=== PATIENT | female | born 1960 | race African-American/Black ===

== ENCOUNTER → 2022-10-25 13:15 | Outpatient (CLI) | payer OTHER, SELFPAY ==
[2022-10-25 14:54] LABS: Add Manual Diff / Slide Review NO; Basophils Absolute Auto 0 /uL (0-100); Basophils Percent Auto 0.4 % (0-2); Eosinophils Absolute Auto 100 /uL (0-450); Eosinophils Percent Auto 0.7 % (2-4); Hematocrit 37.1 % (36-46); Hemoglobin 12.2 g/dL (12.0-16.0); Lymphocytes Absolute Auto 2100 /uL (1100-4500); Lymphocytes Percent Auto 26.3 % (25-40); Mean Corpuscular Hemoglobin 26.5 PG (26-34); Mean Corpuscular Volume 80.3 fL (80-100); Monocytes Absolute Auto 600 /uL (0-900); Monocytes Percent Auto 7.5 % (3-14); Neutrophils Absolute Auto 5300 /uL (1500-7000); Neutrophils Percent Auto 65.1 % (50-75); Platelet Count 377 X10^3/uL (150-400); Red Blood Cell Count 4.62 X10^6/uL (4.0-5.2); White Blood Cell Count 8.1 X10^3/uL (4.5-11.0)
[2022-10-25 15:07] LABS: Alanine Aminotransferase 52 IU/L (<35); Albumin 4.8 g/dL (3.5-5.0); Albumin Globulin Ratio 1.4 (1.0-2.8); Alkaline Phosphatase 82 U/L (38-126); Aspartate Aminotransferase 44 IU/L (14-36); BUN Creatinine Ratio 15.2 (6-22); Bilirubin Total 0.4 mg/dL (0.2-1.3); Blood Urea Nitrogen 12 mg/dL (7-17); C-Reactive Protein Quant 0.5 mg/dL (<1.0); Carbon Dioxide 26 mmol/L (22-32); Chloride 103 mmol/L (98-107); Cholesterol 211 mg/dL (140-199); Estimated Glomerular Filt Rate > 60 mL/min (>60); Globulin 3.4 g/dL (1.7-4.1); Glucose 83 mg/dL (80-110); HDL Cholesterol 48 mg/dL (40-60); HEMOLYSIS < 15 (0-50); LDL Cholesterol Calculated 130 mg/dL (<100); Potassium 4.1 mmol/L (3.4-5.1); Sodium 142 mmol/L (137-145); Total Protein 8.2 g/dL (6.3-8.2); Triglycerides 165 mg/dL (35-150)
== END ==
PROVIDERS: PCP Family Medicine; Referring Provider Family Medicine; Visit Provider Family Medicine
DX: E78.5 Hyperlipidemia, unspecified (principal); M79.7 Fibromyalgia
CPT/HCPCS: 36415; 80053; 80061; 85025; 86140

== ENCOUNTER → 2022-11-21 10:47 | Outpatient (CLI) | payer OTHER, SELFPAY ==
--- NOTE | 2022-11-21 10:48 | DI.RAD.S_ITS ---
PROCEDURE: XR WRIST RT MIN 3V INDICATIONS: pain TECHNIQUE: 4 views of the wrist were acquired. COMPARISON: None. FINDINGS: Bones: No fractures or dislocations. No suspicious bony lesions. Scaphoid view: Scaphoid intact Soft tissues: No suspicious soft tissue calcifications. IMPRESSION: No evidence acute bony abnormality of the right wrist. If clinical suspicion and/or symptoms persist, further assessment with repeat plain films, or advanced imaging (e.g., CT, MRI, or bone scan) may be helpful for further assessment. Dictated by: Félix Palomo M.D. on 11/21/2022 at 12:29 Approved by: Félix Palomo M.D. on 11/21/2022 at 12:31
== END ==
PROVIDERS: PCP Family Medicine; Referring Provider Family Medicine; Visit Provider Family Medicine
DX: M25.531 Pain in right wrist (principal); G89.29 Other chronic pain
CPT/HCPCS: 73110

== ENCOUNTER 2022-11-30 09:25 | Emergency (ER) | payer OTHER, SELFPAY ==
[2022-11-30 09:42] VITALS: PULSE 93
[2022-11-30 09:44] VITALS: BP 151/96; PULSE 96; RESP 20; O2SAT 100
--- NOTE | 2022-11-30 09:48 | ED_ITS ---
HPI - General Adult General Chief complaint: Arrhythmia/Palpitations Stated complaint: Palpitations Time Seen by Provider: 11/30/22 09:38 Source: patient Mode of arrival: Ambulatory Limitations: no limitations History of Present Illness HPI narrative: 62-year-old female who is here for evaluation of palpitations. She states that for the past couple nights when she is lying in bed she feels like her heart is racing and skipping beats. It does last several minutes and then resolves. Does not get lightheaded nor short of breath with the symptoms. Has not noticed the symptoms as much during the day. She is never had these evaluated. She did start to who [id number] cholesterol medication a couple days ago which she has subsequently stopped. Related Data Home Medications Medication Instructions Recorded Confirmed calcium carbonate 500 mg-vitamin 1 tab PO DAILY 10/16/22 11/21/22 D3 10 mcg (400 unit) tablet cyclobenzaprine 10 mg tablet 10 mg PO BEDTIME 10/16/22 11/21/22 hydrocodone 5 mg-acetaminophen 325 1 tab PO Q6H PRN 10/16/22 11/21/22 mg tablet omeprazole 20 mg capsule,delayed 20 mg PO DAILY 10/16/22 11/21/22 release potassium chloride 10 mEq 10 meq PO DAILY 10/16/22 11/21/22 tablet,extended release Allergies Allergy/AdvReac Type Severity Reaction Status Date / Time sulfamethoxazole Allergy Severe Difficulty Verified 11/21/22 10:35 [From Bactrim] Breathing trimethoprim [From Bactrim] Allergy Severe Difficulty Verified 11/21/22 10:35 Breathing imitrex Allergy Intermediate Difficulty Uncoded 11/21/22 10:35 Swallowing Review of Systems Constitutional Constitutional: Reports system reviewed and no additional complaints, except as documented Cardiovascular Cardiovascular: Reports system reviewed and no additional complaints, except as documented Respiratory Respiratory: Reports system reviewed and no additional complaints, except as documented Gastrointestinal Gastrointestinal: Reports system reviewed and no additional complaints, except as documented Genitourinary Genitourinary: Reports system reviewed and no additional complaints, except as documented Integumentary/Breasts Skin/Breast: Reports system reviewed and no additional complaints, except as documented Neurologic Neurologic: Reports system reviewed and no additional complaints, except as do cumented Hematologic/Lymphatic Hematologic/Lymphatic: Reports system reviewed and no additional complaints, except as documented Patient History Medical History Arthritis Chronic pain of right wrist De Quervain's tenosynovitis, right Fibromyalgia (~2017) Finger stiffness GERD (gastroesophageal reflux disease) Hyperlipidemia Irritable bowel syndrome Tendinitis Transaminitis Upper extremity somatic dysfunction Family History Father Cancer Sister Breast cancer Social History Smoking Status: Former smoker Smoking Status: Unknown if ever smoked Exam Initial Vital Signs Initial Vital Signs: Vital Signs Pulse Rate 93 H 11/30/22 09:42 Const General: cooperative, comfortable and No ill appearing HENMT Head: normal to inspection and normocephalic Resp Effort & Inspection: normal respiratory effort Auscultation: clear to auscultation bilaterally Cardio Rate: regular rate Rhythm: regular rhythm GI Palpation: soft and No tender Skin General: no rashes or lesions noted Neuro General: patient alert, patient awake and moves all extremities Extrem General: normal to inspection and capillary refill normal Course Orders Ordered: ED Orders 11/30/22 09:38 EKG-12 Lead Stat 11/30/22 10:00 Basic Metabolic Panel Stat Complete Blood Count AUTO DIFF Stat MG [Magnesium] Stat Vital Signs Vital signs: Vital Signs - 8 hr 11/30/22 10:00 11/30/22 09:42 11/30/22 09:44 Temperature 97.5 F L Pulse Rate 82 93 H Respiratory Rate 18 Blood Pressure 130/80 151/96 H Pulse Oximetry 99 Oxygen Delivery Method Room Air 11/30/22 09:44 11/30/22 10:00 11/30/22 10:00 Temperature Pulse Rate 96 H 85 Respiratory Rate 20 18 Blood Pressure 130/80 Pulse Oximetry 100 99 Oxygen Delivery Method Medical Decision Making Lab Data Lab results reviewed: Yes I reviewed the patient's lab results. 11/30/22 10:00 11/30/22 10:00 Labs: Lab Results 11/30/22 11/30/22 11/30/22 Range/Units 10:00 10:00 10:00 WBC 8.9 (4.5-11.0) X10^3/uL RBC 4.63 (4.0-5.2) X10^6/uL Hgb 12.1 (12.0-16.0) g/dL Hct 37.2 (36-46) % MCV 80.3 (80-100) fL MCH 26.2 (26-34) PG MCHC 32.7 (30-36) % RDW 13.7 (11.6-14.8) % Plt Count 375 (150-400) X10^3/uL Neut % (Auto) 71.7 (50-75) % Lymph % (Auto) 20.6 L (25-40) % [place] % (Auto) 6.8 (3-14) % Eos % (Auto) 0.4 L (2-4) % Baso % (Auto) 0.5 (0-2) % Neut # (Auto) 6400 (0187-1513) /uL Lymph # (Auto) 1800 (6612-8179) /uL [place] # (Auto) 600 (0-900) /uL Eos # (Auto) 0 (0-450) /uL Baso # (Auto) 0 (0-100) /uL Sodium 141 (137-145) mmol/L Potassium 4.1 (3.4-5.1) mmol/L Chloride 105 (98-107) mmol/L Carbon Dioxide 26 (22-32) mmol/L BUN 10 (7-17) mg/dL Creatinine 0.75 (0.52-1.04) mg/dL Estimated GFR > 60 (>60) mL/min BUN/Creatinine Ratio 13.3 (6-22) Glucose 99 (80-110) mg/dL Calcium 9.9 (8.4-10.2) mg/dL Magnesium 1.8 (1.6-2.3) mg/dL ECG Data Attestation: I personally reviewed and interpreted this ECG as follows: Interpretation: Sinus rhythm Ventricular rate 81 Normal axis Normal QRS Normal QTC No ST T wave changes MDM Narrative Medical decision making narrative: Patient has had no symptoms since arrival here in the emergency department. Her EKG is unremarkable. Has had no ectopy on her monitoring. Her electrolytes are unremarkable. Will discharge patient home without further workup here in the ER. We did discuss strict return precautions. We discussed how she should contact her primary doctor about a follow-up and to discuss the indications for Holter monitor. She expressed understanding and agreement. Discharge Plan Departure Patient Disposition: Home Clinical Impression: Palpitations Instructions: Arrhythmias Activity Restrictions/Additional Instructions: Recommend that you continue to take all of your medications as directed. Contact your primary doctor for follow-up to discuss the indications for a Holter monitor. Return to the emergency department for any new symptoms. Prescriptions: No Action hydrocodone-acetaminophen 5-325 mg tablet 1 tab PO Q6H PRN omeprazole 20 mg capsule,delayed release(DR/EC) 20 mg PO DAILY potassium chloride 10 mEq tablet extended release 10 meq PO DAILY calcium carbonate-vitamin D3 500 mg-10 mcg (400 unit) tablet 1 tab PO DAILY cyclobenzaprine 10 mg tablet 10 mg PO BEDTIME Referrals: Fadi López DO [Primary Care Provider] - Stand Alone Forms: Patient Portal/API
[2022-11-30 10:00] VITALS: BP 130/80; PULSE 82; PULSE 85; RESP 18; TEMP 36.4; O2SAT 99
[2022-11-30 10:07] LABS: Add Manual Diff / Slide Review NO; Basophils Absolute Auto 0 /uL (0-100); Basophils Percent Auto 0.5 % (0-2); Eosinophils Absolute Auto 0 /uL (0-450); Eosinophils Percent Auto 0.4 % (2-4); Hematocrit 37.2 % (36-46); Hemoglobin 12.1 g/dL (12.0-16.0); Lymphocytes Absolute Auto 1800 /uL (1100-4500); Lymphocytes Percent Auto 20.6 % (25-40); Mean Corpuscular HGB Conc 32.7 % (30-36); Mean Corpuscular Hemoglobin 26.2 PG (26-34); Mean Corpuscular Volume 80.3 fL (80-100); Monocytes Absolute Auto 600 /uL (0-900); Monocytes Percent Auto 6.8 % (3-14); Neutrophils Absolute Auto 6400 /uL (1500-7000); Neutrophils Percent Auto 71.7 % (50-75); Platelet Count 375 X10^3/uL (150-400); Red Blood Cell Count 4.63 X10^6/uL (4.0-5.2); Red Cell Distribution Width 13.7 % (11.6-14.8); White Blood Cell Count 8.9 X10^3/uL (4.5-11.0)
[2022-11-30 10:30] VITALS: BP 139/73; PULSE 79; RESP 15; O2SAT 99
[2022-11-30 11:00] VITALS: BP 138/74; PULSE 74; RESP 16; O2SAT 100
[2022-11-30 11:16] LABS: BUN Creatinine Ratio 13.3 (6-22); Blood Urea Nitrogen 10 mg/dL (7-17); Calcium 9.9 mg/dL (8.4-10.2); Carbon Dioxide 26 mmol/L (22-32); Chloride 105 mmol/L (98-107); Estimated Glomerular Filt Rate > 60 mL/min (>60); Glucose 99 mg/dL (80-110); HEMOLYSIS < 15 (0-50); Magnesium 1.8 mg/dL (1.6-2.3); Potassium 4.1 mmol/L (3.4-5.1); Sodium 141 mmol/L (137-145)
[2022-11-30 11:30] VITALS: BP 137/77; PULSE 77; RESP 19; O2SAT 100
== END 2022-11-30 11:42 | disposition home or self-care (01) ==
PROVIDERS: Emergency Provider Emergency Medicine; PCP Family Medicine
DX: R00.2 Palpitations (principal)
CPT/HCPCS: 80048; 83735; 85025; 93005; 93010; 99281; 99284

== ENCOUNTER → 2022-12-06 08:09 | Outpatient (CLI) | payer OTHER, SELFPAY ==
--- NOTE | 2022-12-06 08:11 | DI.MG.S_ITS ---
BILATERAL DIGITAL SCREENING MAMMOGRAM 3D/2D WITH CAD: 12/06/2022 CLINICAL: Routine screening. Comparison is made to exams dated: 08/31/2021 mammogram, 09/11/2020 mammogram, and 08/09/2019 mammogram - Outside facility. Both breasts are heterogeneously dense, which may obscure small masses (category c / 51-75% glandular tissue). Current study was also evaluated with a Computer Aided Detection (CAD) system. No significant masses, calcifications, or other findings are seen in either breast. There has been no significant interval change. IMPRESSION: NEGATIVE There is no mammographic evidence of malignancy. A 1 year screening mammogram is recommended. Based on the Tyrer Cuzick model (a risk assessment model) the patient's lifetime risk is 7.1% and her 10 year risk is 3.0%. According to the ACR, ACS, and NCCN guidelines, an annual breast MRI exam along with mammogram is recommended if the patient's lifetime risk is 20% or greater. This exam was interpreted at Station ID: [id number]. NOTE: For mammograms, a report in lay terms will be sent to the patient. Approximately 15% of breast malignancies will not be visualized mammographically. In the management of a palpable breast mass, a negative mammogram must not discourage biopsy of a clinically suspicious lesion. Electronically Signed By: Debbi bran/josé manuel:12/06/2022 17:17:19 letter sent: Normal Exam ACR BI-RADS Category 1: Negative 3341F
== END ==
PROVIDERS: PCP Family Medicine; Referring Provider Family Medicine; Visit Provider Family Medicine
DX: Z12.31 Encounter for screening mammogram for malignant neoplasm of breast (principal)
CPT/HCPCS: 77063; 77067

== ENCOUNTER → 2022-12-18 09:28 | Outpatient (CLI) | payer OTHER, SELFPAY | PROVIDERS: PCP Family Medicine; Referring Provider Family Medicine; Visit Provider Family Medicine | DX: R00.2 Palpitations (principal) | CPT/HCPCS: 93242 ==

== ENCOUNTER → 2023-04-01 11:55 | Outpatient (CLI) | payer OTHER, SELFPAY ==
[2023-04-01 13:23] LABS: Cholesterol 226 mg/dL (140-199); HDL Cholesterol 48 mg/dL (40-60); LDL Cholesterol Calculated 158 mg/dL (<100); Triglycerides 100 mg/dL (35-150)
== END ==
PROVIDERS: PCP Family Medicine; Referring Provider Family Medicine; Visit Provider Family Medicine
DX: E78.5 Hyperlipidemia, unspecified (principal)
CPT/HCPCS: 36415; 80061

== ENCOUNTER → 2023-06-16 09:19 | Outpatient (CLI) | payer OTHER, SELFPAY ==
[2023-06-16 10:41] LABS: Cholesterol 186 mg/dL (140-199); HDL Cholesterol 44 mg/dL (40-60); LDL Cholesterol Calculated 125 mg/dL (<100); Triglycerides 85 mg/dL (35-150)
== END ==
PROVIDERS: PCP Family Medicine; Referring Provider Family Medicine; Visit Provider Family Medicine
DX: E78.5 Hyperlipidemia, unspecified (principal)
CPT/HCPCS: 36415; 80061

== ENCOUNTER → 2023-06-17 15:05 | Outpatient (CLI) | payer OTHER, SELFPAY ==
--- NOTE | 2023-06-17 15:06 | DI.RAD.S_ITS ---
PROCEDURE: XR THORACIC SPINE 2V INDICATIONS: upper back pain, C3-7 fusion TECHNIQUE: 3 views of the thoracic spine were acquired. COMPARISON: [facility], CR, XR CERVICAL SPINE 4V OR 5V, 06/17/2023, 15:10. FINDINGS: Bones: No fractures or dislocations. No suspicious bony lesions. 12 pairs of ribs are noted, and appear intact where visualized. Very minimal S-shaped thoracolumbar scoliotic curvature. Soft tissues: No paravertebral stripe thickening. IMPRESSION: No acute bony abnormality. Very minimal S shaped thoracolumbar scoliotic curvature. Dictated by: Félix Palomo M.D. on 06/17/2023 at 17:04 Approved by: Félix Palomo M.D. on 06/17/2023 at 17:05
--- NOTE | 2023-06-17 15:06 | DI.RAD.S_ITS ---
PROCEDURE: XR CERVICAL SPINE 4V OR 5V INDICATIONS: neck pain, h/o fusion, flex/ext TECHNIQUE: 5 views of the cervical spine were acquired. COMPARISON: None. FINDINGS: Bones: Remote ACDF at C3 through C7 with anterior plate and screw fixation and mature interbody bone graft material. No evidence of hardware failure or loosening. No fractures or dislocations to the T1 level. No suspicious bony lesions. There is diminished range of motion between flexion and extension, with preserved normal bony alignment. Soft tissues: Prevertebral soft tissues are normal in thickness. IMPRESSION: Expected appearance of orthopedic surgical hardware. Expected diminished range of motion. No abnormal motion. Dictated by: Félix Palomo M.D. on 06/17/2023 at 17:03 Approved by: Félix Palomo M.D. on 06/17/2023 at 17:04
== END ==
PROVIDERS: PCP Family Medicine; Referring Provider Family Medicine; Visit Provider Family Medicine
DX: M54.2 Cervicalgia (principal); Z98.1 Arthrodesis status
CPT/HCPCS: 72050; 72070

== ENCOUNTER → 2023-12-09 08:22 | Outpatient (CLI) | payer OTHER, SELFPAY ==
--- NOTE | 2023-12-09 | DI.MG.S_ITS ---
BILATERAL DIGITAL SCREENING MAMMOGRAM 3D/2D WITH CAD: 12/09/2023 CLINICAL: Routine screening. Family history of breast cancer. Comparison is made to exams dated: 12/06/2022 mammogram - [facility], 08/31/2021 mammogram, and 09/11/2020 mammogram - Outside facility. Both breasts are heterogeneously dense, which may obscure small masses (category c / 51-75% glandular tissue). Current study was also evaluated with a Computer Aided Detection (CAD) system. No significant masses, calcifications, or other findings are seen in either breast. There has been no significant interval change. IMPRESSION: NEGATIVE There is no mammographic evidence of malignancy. A 1 year screening mammogram is recommended. Based on the Tyrer Cuzick model (a risk assessment model) the patient's lifetime risk is 6.9% and her 10 year risk is 3.0%. According to the ACR, ACS, and NCCN guidelines, an annual breast MRI exam along with mammogram is recommended if the patient's lifetime risk is 20% or greater. This exam was interpreted at Station ID: [id number]. NOTE: For mammograms, a report in lay terms will be sent to the patient. Approximately 15% of breast malignancies will not be visualized mammographically. In the management of a palpable breast mass, a negative mammogram must not discourage biopsy of a clinically suspicious lesion. Electronically Signed By: Remy mcgee/josé manuel:12/09/2023 13:49:15 letter sent: Normal Exam ACR BI-RADS Category 1: Negative 3341F
== END ==
PROVIDERS: PCP Family Medicine; Referring Provider Family Medicine; Visit Provider Family Medicine
DX: Z12.31 Encounter for screening mammogram for malignant neoplasm of breast (principal); Z80.3 Family history of malignant neoplasm of breast; R92.333 Mammographic heterogeneous density, bilateral breasts
CPT/HCPCS: 77063; 77067

== ENCOUNTER → 2024-01-22 09:36 | Outpatient (CLI) | payer OTHER, SELFPAY ==
[2024-01-22 12:32] LABS: Cholesterol 160 mg/dL (140-199); HDL Cholesterol 49 mg/dL (40-60); LDL Cholesterol Calculated 85 mg/dL (<100); Triglycerides 132 mg/dL (35-150)
== END ==
PROVIDERS: PCP Family Medicine; Referring Provider Family Medicine; Visit Provider Family Medicine
DX: E78.5 Hyperlipidemia, unspecified (principal)
CPT/HCPCS: 36415; 80061

== ENCOUNTER → 2024-04-16 07:38 | Outpatient (CLI) | payer OTHER, SELFPAY ==
[2024-04-16 07:52] LABS: Add Manual Diff / Slide Review NO; Basophils Absolute Auto 0 /uL (0-100); Basophils Percent Auto 0.4 % (0-2); Eosinophils Absolute Auto 100 /uL (0-450); Eosinophils Percent Auto 1.4 % (2-4); Hematocrit 36.7 % (36-46); Lymphocytes Absolute Auto 2200 /uL (1100-4500); Lymphocytes Percent Auto 34.7 % (25-40); Mean Corpuscular HGB Conc 32.7 % (30-36); Mean Corpuscular Hemoglobin 26.5 PG (26-34); Monocytes Absolute Auto 400 /uL (0-900); Monocytes Percent Auto 7.1 % (3-14); Neutrophils Absolute Auto 3500 /uL (1500-7000); Neutrophils Percent Auto 56.4 % (50-75); Platelet Count 365 X10^3/uL (150-400); Red Blood Cell Count 4.54 X10^6/uL (4.0-5.2); Red Cell Distribution Width 13.8 % (11.6-14.8); White Blood Cell Count 6.2 X10^3/uL (4.5-11.0)
[2024-04-16 08:04] LABS: Alanine Aminotransferase 20 IU/L (<35); Albumin 4.5 g/dL (3.5-5.0); Albumin Globulin Ratio 1.6 (1.0-2.8); Alkaline Phosphatase 61 U/L (38-126); Aspartate Aminotransferase 25 IU/L (14-36); BUN Creatinine Ratio 18.2 (6-22); Bilirubin Total 0.5 mg/dL (0.2-1.3); Blood Urea Nitrogen 14 mg/dL (7-17); Calcium 9.5 mg/dL (8.4-10.2); Carbon Dioxide 26 mmol/L (22-32); Chloride 110 mmol/L (98-107); Cholesterol 175 mg/dL (140-199); Estimated Glomerular Filt Rate > 60 mL/min (>60); Globulin 2.8 g/dL (1.7-4.1); Glucose 102 mg/dL (80-110); HDL Cholesterol 45 mg/dL (40-60); HEMOLYSIS < 15 (0-50); LDL Cholesterol Calculated 113 mg/dL (<100); Potassium 4.4 mmol/L (3.4-5.1); Sodium 142 mmol/L (137-145); Total Protein 7.3 g/dL (6.3-8.2); Triglycerides 84 mg/dL (35-150)
== END ==
PROVIDERS: PCP Family Medicine; Referring Provider Family Medicine; Visit Provider Family Medicine
DX: R12 Heartburn (principal); R49.0 Dysphonia; M79.7 Fibromyalgia; E78.5 Hyperlipidemia, unspecified
CPT/HCPCS: 36415; 80053; 80061; 85025

== ENCOUNTER → 2024-10-18 08:39 | Outpatient (CLI) | payer BC, SELFPAY ==
[2024-10-18 10:12] LABS: Cholesterol 232 mg/dL (140-199); HDL Cholesterol 55 mg/dL (40-60); LDL Cholesterol Calculated 149 mg/dL (<100); Triglycerides 140 mg/dL (35-150)
== END ==
PROVIDERS: PCP Family Medicine; Referring Provider Family Medicine; Visit Provider Family Medicine
DX: E78.5 Hyperlipidemia, unspecified (principal)
CPT/HCPCS: 36415; 80061

== ENCOUNTER → 2024-12-20 07:54 | Outpatient (CLI) | payer BC, SELFPAY ==
--- NOTE | 2024-12-20 07:55 | DI.MG.S_ITS ---
MM screening mammo BI: 12/20/2024. BI-RADS: 1 CLINICAL: 64-year old female for bilateral screening mammogram. Tyrer-Cuzick lifetime risk of 11.0%. No personal or first-degree family history of breast cancer. PRIOR EXAMS 12/09/2023, 12/06/2022, 08/31/2021, 09/11/2020. MAMMOGRAPHY TECHNIQUE: 2D and 3D (tomosynthesis) digital mammographic views obtained, with additional images as needed for full coverage. Current study was also evaluated with a Computer Aided Detection (CAD) system. DENSITY C. The breasts are heterogeneously dense, which may obscure small masses. MAMMOGRAPHY FINDINGS Bilateral: No suspicious mass, asymmetry, microcalcification, or other abnormality seen. No significant change from comparison. IMPRESSION: * No evidence of malignancy. RECOMMENDATIONS Bilateral * Annual screening mammography. OVERALL ASSESSMENT CATEGORY BI-RADS-1: Negative. The [employer] recommends annual screening mammography beginning at age 40 for women with average risk of breast cancer. ELECTRONICALLY SIGNED: Jhoana Mcnair M.D. on 12/20/2024 at 01:36:38 PM PT Interpreting Station ID: [id number]
== END ==
PROVIDERS: PCP Family Medicine; Referring Provider Family Medicine; Visit Provider Family Medicine
DX: Z12.31 Encounter for screening mammogram for malignant neoplasm of breast (principal); R92.333 Mammographic heterogeneous density, bilateral breasts
CPT/HCPCS: 77063; 77067

== ENCOUNTER → 2025-03-22 10:44 | Outpatient (CLI) | payer BC, SELFPAY ==
[2025-03-22 15:45] LABS: Alanine Aminotransferase 23 IU/L (<35); Albumin 4.7 g/dL (3.5-5.0); Albumin Globulin Ratio 1.5 (1.0-2.8); Alkaline Phosphatase 68 U/L (38-126); Blood Urea Nitrogen 14 mg/dL (7-17); Calcium 10.2 mg/dL (8.4-10.2); Carbon Dioxide 24 mmol/L (22-32); Chloride 106 mmol/L (98-107); Cholesterol 201 mg/dL (140-199); Estimated Glomerular Filt Rate > 60 mL/min (>60); Globulin 3.2 g/dL (1.7-4.1); Glucose 88 mg/dL (70-99); HDL Cholesterol 50 mg/dL (40-60); HEMOLYSIS < 15 (0-50); Potassium 4.4 mmol/L (3.4-5.1); Sodium 141 mmol/L (137-145); Total Protein 7.9 g/dL (6.3-8.2); Triglycerides 107 mg/dL (35-150)
== END ==
PROVIDERS: PCP Family Medicine; Referring Provider Family Medicine; Visit Provider Family Medicine
DX: K58.9 Irritable bowel syndrome, unspecified (principal); K21.9 Gastro-esophageal reflux disease without esophagitis; R74.01 Elevation of levels of liver transaminase levels; E78.5 Hyperlipidemia, unspecified
CPT/HCPCS: 36415; 80053; 80061

== ENCOUNTER → 2025-08-05 12:48 | Outpatient (CLI) | payer BC, SELFPAY ==
[2025-08-05 14:03] LABS: Add Manual Diff / Slide Review NO; Hematocrit 37.0 % (36-46); Hemoglobin 12.1 g/dL (12.0-16.0); Lymphocytes Absolute Auto 2000 /uL (1100-4500); Mean Corpuscular HGB Conc 32.6 % (30-36); Mean Corpuscular Hemoglobin 26.4 PG (26-34); Mean Corpuscular Volume 80.9 fL (80-100); Platelet Count 373 X10^3/uL (150-400)
[2025-08-05 14:15] LABS: Alanine Aminotransferase 22 IU/L (<35); Albumin 4.8 g/dL (3.5-5.0); Albumin Globulin Ratio 1.5 (1.0-2.8); Alkaline Phosphatase 61 U/L (38-126); Blood Urea Nitrogen 13 mg/dL (7-17); Calcium 9.8 mg/dL (8.4-10.2); Carbon Dioxide 26 mmol/L (22-32); Chloride 106 mmol/L (98-107); Estimated Glomerular Filt Rate > 60 mL/min (>60); Globulin 3.2 g/dL (1.7-4.1); Glucose 94 mg/dL (70-99); HEMOLYSIS < 15 (0-50); Lipase 107 U/L (23-300); Potassium 4.2 mmol/L (3.4-5.1); Sodium 143 mmol/L (137-145); Total Protein 8.0 g/dL (6.3-8.2)
== END ==
PROVIDERS: PCP Family Medicine; Referring Provider Physician Assistant; Visit Provider Physician Assistant
DX: K21.9 Gastro-esophageal reflux disease without esophagitis (principal); K58.9 Irritable bowel syndrome, unspecified
CPT/HCPCS: 36415; 80053; 83690; 85025

== ENCOUNTER → 2025-08-08 07:07 | Outpatient (CLI) | payer BC, SELFPAY ==
--- NOTE | 2025-08-08 07:08 | DI.US.S_ITS ---
PROCEDURE: US ABDOMEN COMPLETE INDICATIONS: Epigastric pain x 2 weeks TECHNIQUE: Real-time scanning was performed of the abdominal and retroperitoneal organs, with image documentation. COMPARISON: None. FINDINGS: Liver: Liver is normal in size and homogeneous in echotexture. Gallbladder: Cholecystectomy Biliary ducts: Intrahepatic bile ducts are non-dilated. Extrahepatic bile duct caliber measures 3 mm. Normal is 6-7 mm or less in diameter, or 10 mm or less post-cholecystectomy. Pancreas: Visualized portions of the pancreas are sonographically normal. Spleen: Spleen is normal in size and homogeneous in echotexture. Kidneys: Kidneys are normal in size and echotexture. Right kidney measures 9.2 cm long; left kidney measures 10.4 cm long. No hydronephrosis or nephrolithiasis. No solid masses. Aorta: Visualized aorta is normal in caliber measuring 2.3 centimeter in greatest dimension Iliacs: Proximal common iliac arteries are normal in caliber at less than 2.5 cm. IVC: Intrahepatic inferior vena cava is patent. Miscellaneous: No free abdominal fluid. IMPRESSION: Unremarkable examination. Dictated by: Ron Skelton M.D. on 08/08/2025 at 9:06 Approved by: Ron Skelton M.D. on 08/08/2025 at 9:11
== END ==
LOC: US 07:08
PROVIDERS: PCP Family Medicine; Referring Provider Family Medicine; Visit Provider Physician Assistant
DX: K21.9 Gastro-esophageal reflux disease without esophagitis (principal); K58.9 Irritable bowel syndrome, unspecified; Z90.49 Acquired absence of other specified parts of digestive tract
CPT/HCPCS: 76700